=== PATIENT | female | born 1960 | race Caucasian/White ===

== ENCOUNTER → 2020-04-29 | Outpatient (CLI) | payer BC ==
[~2020-04-29] MED LIST: CALCCAP4 PO; CHAN1PAK11 PO; FLUO20CA22 PO; LEVO50TA5 PO; OMEGCAP4 PO; ROSU5TAB5 PO; TENO1TAB2 PO; vitamin d PO
--- NOTE | 2020-04-29 15:16 | REP ---
REASON FOR EXAM: Leg pain. Bilateral. Ankle-brachial index on the right is 1.1. 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 Electronically Signed by Darren Henson DO 04/29/2020 03:44 P
== END ==
LOC: M RAD 11:13
PROVIDERS: ATTEND Physician Assistant
DX: M79.606 Pain in leg, unspecified (principal); I87.2 Venous insufficiency (chronic) (peripheral)

== ENCOUNTER → 2020-05-02 | Outpatient (CLI) | payer BC ==
--- NOTE | 2020-05-02 23:01 | REP ---
BILATERAL LOWER EXTREMITY DUPLEX DOPPLER VENOUS ULTRASOUND WITH EVALUATION FOR VENOUS REFLUX: Real-time compression and duplex Doppler interrogation of bilateral lower extremity deep venous systems is performed. Bilaterally, common femoral, superficial femoral, and popliteal veins are fully compressible with transducer pressure and demonstrate normal spontaneous and phasic flow without evidence of deep venous thrombosis. Evaluation for venous reflux on the right demonstrates no reflux in any of the deep veins. There is no reflux in the anterior accessory greater saphenous vein. There is no reflux in any portion of the greater saphenous vein, which measures 6 mm proximally at the saphenofemoral junction and mid thigh and 5 mm at the level of the knee. There is no reflux in the lesser saphenous vein, which measures 4 mm. On the left, the patient has had greater saphenous vein ablation 2 years ago. There is no reflux in any of the deep veins, nor in the lesser saphenous vein, which measures 3 mm. There is reflux in the anterior accessory greater saphenous vein proximally. The vein is not seen distal to the upper thigh. Electronically Signed by Ravinder Sales MD 05/05/2020 10:36 P
== END ==
LOC: M RAD 11:01
PROVIDERS: ATTEND Physician Assistant
DX: I87.2 Venous insufficiency (chronic) (peripheral) (principal)

== ENCOUNTER → 2020-05-09 | Outpatient (CLI) | payer BC ==
[2020-05-09 10:25] LABS: HEMATOCRIT 43.5 % (36.0-47.0); HEMOGLOBIN 14.9 g/dl (12.0-15.5); MEAN CORPUSCULAR HEMOGLOBIN 37.2 pg (27.0-33.0); MEAN CORPUSCULAR HGB CONC 34.3 g/dl (32.0-36.5); MEAN CORPUSCULAR VOLUME 108.5 fl (80.0-96.0); PLATELET COUNT, AUTOMATED 203 10^3/uL (150-450); RED BLOOD COUNT 4.01 10^6/uL (4.00-5.40); WHITE BLOOD COUNT 7.3 10^3/uL (4.0-10.0)
[2020-05-09 11:06] LABS: ALBUMIN 3.8 GM/DL (3.2-5.2); ALT/SGPT 98 U/L (12-78); BLOOD UREA NITROGEN 7 MG/DL (7-18); CALCIUM LEVEL 9.4 MG/DL (8.5-10.1); CARBON DIOXIDE LEVEL 30 MEQ/L (21-32); CHLORIDE LEVEL 95 MEQ/L (98-107); GLOMERULAR FILTRATION RATE > 60.0 (>51); GLUCOSE, FASTING 104 MG/DL (70-100); POTASSIUM SERUM 3.6 MEQ/L (3.5-5.1); SODIUM LEVEL 132 MEQ/L (136-145); TOTAL PROTEIN 7.9 GM/DL (6.4-8.2)
== END ==
LOC: M LAB 09:48
PROVIDERS: ATTEND Physician Assistant
DX: I87.2 Venous insufficiency (chronic) (peripheral) (principal); M79.606 Pain in leg, unspecified

== ENCOUNTER → 2020-05-14 | Outpatient (CLI) | payer BC ==
[~2020-05-14] MED LIST changes: +ISOVUE-300 61% 50ML VIAL As Ordered ONE; +LIDOCAINE 1% MDV 20ML VIAL As Ordered ONE; +MIDAZOLAM INJ 2MG/2ML VIAL (J2250 PER 1MG) As Ordered ONE; +fentaNYL 100 MCG/2 ML INJECTION (J3010) As Ordered ONE
--- NOTE | 2020-05-14 10:38 | ROOPDOC ---
[facility] Report Of Operation Report of Operation DATE OF PROCEDURE: 05/14/20 PREPROCEDURE DIAGNOSES: Atherosclerosis of the rosebud arteries with worsening wound right ankle and right foot pain POSTPROCEDURE DIAGNOSES: Same PROCEDURE: 1. Ultrasound-guided access left common femoral artery 2. Aortoiliofemoral arteriogram 3. Selection right common femoral artery and superficial femoral artery with right lower extremity runoff SURGEON: Jaime Muir MD ANESTHESIA: Local anesthesia 7 mL lidocaine. Moderate intravenous conscious sedation was supervised by Dr. Muir. The patient was independently monitored by a registered nurse assigned to the Department of radiology using automated blood pressure, EKG, and pulse oximetry. The detailed sedation record is permanently stored in the hospital information system. The following is a brief sedation record: Start time 10:01, stop time 10:24, Versed 1 mg IV, fentanyl 50 g IV. CONTRAST: 19 mL Isovue 300 INDICATION FOR PROCEDURE: This is a very pleasant 60-year-old patient with a long-standing history of tobacco use and venous stasis with lower extremity edema who developed a wound on her right ankle 3 months ago. Initially, the wound was stable but not really healing. We obtained an arterial and venous duplex. The arterial duplex revealed monophasic flow below the knee on the right, and the venous duplex showed there was no deep or superficial reflux present in the right lower extremity. We initially recommended compression and e levation, but the patient said that her wound had started to get much worse over the past week or 2. We then discussed the option for an arteriogram to see if there was any improvement we could offer in arterial outflow to help with wound healing, in addition to recommending ongoing compression and elevation. We also wanted to make sure that the patient had enough arterial flow to tolerate compression and that this was not contributing to her ankle and foot pain. Risks benefits and alternatives to an arteriogram and potential intervention were explained to the patient. She is agreeable to proceed. Informed consent was obtained. INTERPRETATION: 1. The distal aorta, common iliac arteries, hypogastric arteries, and external iliac arteries are all widely patent. No significant plaque or stenosis are noted. 2. The common femoral artery on the right is widely patent with excellent runoff into the profunda which is also widely patent, and the superficial femoral artery. The superficial femoral artery has brisk flow with no signs of stenosis present. 3. There is a widely patent popliteal artery with 3 vessel runoff through the anterior tibial artery, posterior tibial artery and peroneal artery. No signs of significant stenosis are noted in the calf although some plaque is present. However, we notice very little flow through the micro-circulation of the foot. At approximately the mid foot, there is an abrupt decline inflow to the distal foot. I suspect this is due to the patient's smoking. She smoked several cigarettes right before the procedure. We are probably seeing vasoconstriction from her tobacco use. This could be contributing to her for pain. REPORT OF OPERATION: The patient was brought to the angiographic suite in stable condition. Her bilateral groins were prepped and draped in a sterile fashion. A timeout was performed. Sedation was administered without complication. Local anesthesia was administered to the skin and subcutaneous tissue over the left femoral artery and a microneedle was used to access the left common femoral artery under ultrasound guidance. A wire was passed through this access and the needle was removed. A 4 Wallisian sheath was placed and flushed with saline. A Glidewire and flushing catheter were advanced distal aorta. Aortoiliofemoral arteriograms were performed. Please interpretation above. We then went up and over the bifurcation with the catheter and the Glidewire and selected the right common femoral artery. Right lower extremity arteriograms with runoff were performed. These interpretation above. We then exchanged sheath over the wire for a 5 Wallisian sheath and deployed Mynx closure device with good hemostasis. Pre ssure was held for 5 minutes and sterile dressings were applied. The patient was taken to recovery in stable condition. ESTIMATED BLOOD LOSS: Approximately 4 mL. COMPLICATIONS: None. PLAN: It is okay to resume home diet and medications. No lifting greater than 5 pounds or strenuous exercise for 48 hours. We recommend elevation of the bilateral lower extremities above the level of the heart for at least 30 minutes a day to help with venous return and swelling. We recommend daily compression with either 20 or 30 mmHg compression stockings or Unna boots. If she decides to her stockings, she should wear them from morning until night and okay to remove at night. We have given her instructions on appropriate stockings to obtained. The patient is considering an Unna boot, and if she decides she would like this today, we may be able to place and recovery prior to her discharge home. Belle saenz, we will place one when she comes into clinic next week to check her access site. The patient was extensively counseled about smoking cessation as well. Smoking cessation is important for wound healing as well as her long-term arterial circulation. She said she is willing to try Chantix. We will give her prescription for this. We appreciate the opportunity to participate in the care of this patient. JAIME MUIR MD May 14, 2020 10:38
[2020-05-14 13:00] VITALS: BP 123/57
== END ==
LOC: M IRPRO 08:40
PROVIDERS: ATTEND Surgery Vascular Surgery
DX: I70.203 Unspecified atherosclerosis of native arteries of extremities, bilateral legs (principal); L97.319 Non-pressure chronic ulcer of right ankle with unspecified severity; M79.671 Pain in right foot; I87.2 Venous insufficiency (chronic) (peripheral); I10 Essential (primary) hypertension; E53.8 Deficiency of other specified B group vitamins; E55.9 Vitamin D deficiency, unspecified; E78.5 Hyperlipidemia, unspecified; F17.290 Nicotine dependence, other tobacco product, uncomplicated; M85.80 Other specified disorders of bone density and structure, unspecified site; K58.9 Irritable bowel syndrome, unspecified; R60.0 Localized edema; Z88.1 Allergy status to other antibiotic agents; Z79.890 Hormone replacement therapy; Z79.899 Other long term (current) drug therapy
CPT/HCPCS: 36246; 75710; 99152; 99153; C1760; C1769; C1887; C1894; G0269; J1644; J2250; J3010; Q9967

== ENCOUNTER → 2020-07-22 | Outpatient (CLI) | payer BC ==
[~2020-07-22] MED LIST changes: -ISOVUE-300 61% 50ML VIAL As Ordered ONE; -LIDOCAINE 1% MDV 20ML VIAL As Ordered ONE; -MIDAZOLAM INJ 2MG/2ML VIAL (J2250 PER 1MG) As Ordered ONE; -fentaNYL 100 MCG/2 ML INJECTION (J3010) As Ordered ONE
== END ==
LOC: M RAD 10:00
PROVIDERS: ATTEND Surgery
DX: I70.233 Atherosclerosis of native arteries of right leg with ulceration of ankle (principal)

== ENCOUNTER → 2021-02-13 | Outpatient (CLI) | payer BC ==
[~2021-02-13] MED LIST changes: +ATEN100T7 PO; +VITA1CAP25 PO
== END ==
LOC: M LABSMTC 11:19
PROVIDERS: ATTEND Anesthesiology
DX: Z01.818 Encounter for other preprocedural examination (principal); Z20.822 Contact with and (suspected) exposure to COVID-19

== ENCOUNTER → 2021-04-19 | Outpatient (CLI) | payer BC ==
[~2021-04-19] MED LIST changes: +GLYCCAP PO
[2021-04-19 13:05] LABS: INR 1.07; PROTHROMBIN TIME 14.1 SECONDS (12.5-14.3)
[2021-04-19 13:06] LABS: PARTIAL THROMBOPLASTIN TIME 30.1 SECONDS (24.2-38.5)
[2021-04-19 13:10] LABS: BILIRUBIN,DIRECT 0.2 MG/DL (0.0-0.2); BILIRUBIN,TOTAL 0.8 MG/DL (0.2-1.0); PERCENT SATURATION 34.6 % (13.2-45.0); TOTAL PROTEIN 7.9 GM/DL (6.4-8.2)
== END ==
LOC: M LAB 11:37
PROVIDERS: ATTEND Internal Medicine Gastroenterology
DX: E83.110 Hereditary hemochromatosis (principal)

== ENCOUNTER → 2022-04-20 | Outpatient (REF) | payer BC ==
[~2022-04-20] MED LIST changes: +VARE0.5T PO
== END ==
LOC: M SFHCDERM 17:15
PROVIDERS: ATTEND Nurse Practitioner Family
DX: D48.9 Neoplasm of uncertain behavior, unspecified (principal)

== ENCOUNTER 2025-01-15 13:49 | Inpatient (IN) | payer BC ==
[~2025-01-15] VITALS: Ht 177.8 cm; Wt 111.2 kg
[~2025-01-15 13:49] MED LIST changes: +ALPR0.25 PO; +ATEN100T PO; +CYAN1000VL IM; +ELIQ5TAB PO; +FLUO-365 PO; -FLUO20CA22 PO; +FLUO40CA PO; +FOLI1TAB11 PO; +FOLI400T13 PO; +LOSA50TA5; +ROSU5TAB49 PO; -ROSU5TAB5 PO
[2025-01-15 14:19] LABS: BASO % 0.3 % (0.0-1.0); EOS # 0.1 10^3/uL (0.0-0.5); EOS % 0.5 % (0.0-3.0); HEMATOCRIT 34.3 % (36.0-47.0); LYMPH # 0.6 10^3/uL (1.5-5.0); LYMPH % 5.6 % (24.0-44.0); MEAN CORPUSCULAR HGB CONC 32.1 g/dl (32.0-36.5); MEAN CORPUSCULAR VOLUME 105.9 fl (80.0-96.0); MONO # 0.7 10^3/uL (0.0-0.8); MONO % 6.5 % (2.0-8.0); NEUTROPHILS # 9.6 10^3/uL (1.5-8.5); NEUTROPHILS % 86.6 % (36.0-66.0); PLATELET COUNT, AUTOMATED 203 10^3/uL (150-450); RED BLOOD COUNT 3.24 10^6/uL (4.00-5.40); WHITE BLOOD COUNT 11.1 10^3/uL (4.0-10.0)
[2025-01-15] MEDS: methylPREDNISolone 125MG 2ML VIAL IV ONE (14:42)
[2025-01-15] MEDS: LORazepam 2 MG/ML 1ML VIAL IV STA (14:43)
[2025-01-15 14:50] LABS: CK-MB VALUE MASS < 1.0 NG/ML (<3.6)
[2025-01-15] MEDS ORDERED: ISOVUE-370 76% 100ML VIAL As Ordered ONE (14:51)
[2025-01-15 14:52] LABS: BLOOD UREA NITROGEN 15 MG/DL (9-23); CALCIUM LEVEL 9.2 MG/DL (8.3-10.6); CARBON DIOXIDE LEVEL 23 MMOL/L (20-31); CHLORIDE LEVEL 103 MMOL/L (98-107); CREATININE FOR GFR 0.68 MG/DL (0.55-1.30); GLOMERULAR FILTRATION RATE > 60.0 (>45); GLUCOSE, FASTING 115 MG/DL (74-106); POTASSIUM SERUM 4.5 MMOL/L (3.5-5.1); SODIUM LEVEL 138 MMOL/L (136-145)
[2025-01-15] MEDS: IPRATROPIUM 0.5MG/ALBUTEROL 2.5MG INH SOL UD 3ML (DUONEB) NEB ONE (14:52)
[2025-01-15 14:55] LABS: CPK CREATINE PHOSPHOKINASE 32 U/L (34-145); MB/CK RELATIVE INDEX 3.12 (< OR =4)
[2025-01-15 15:05] LABS: ALBUMIN 3.6 G/DL (3.2-5.2); BILIRUBIN,DIRECT 0.4 MG/DL (<0.4); TOTAL PROTEIN 7.9 G/DL (5.7-8.2)
[2025-01-15] MEDS: FUROSEMIDE 40MG/4ML VIAL IV ONE (15:06)
[2025-01-15 15:08] LABS: THYROID STIMULATING HORMONE 3.74 uIU/ML (0.55-4.78)
[2025-01-15 15:09] LABS: FREE T4 0.8 NG/DL (0.89-1.76)
[2025-01-15 15:09] LABS: ABG BASE EXCESS -2.8 (-2.0-2.0); ABG HCO3 20.4 MMOL/L (22.0-26.0); ABG PARTIAL PRESSURE CO2 30.3 mmHg (35.0-45.0); ABG PARTIAL PRESSURE O2 67.7 mmHg (75.0-100.0); ABG STANDARD HCO3 22.1 MMOL/L. (22.0-26.0); ABG TOTAL CO2 21.3 MMOL/L (23.0-31.0); ABG pH (ARTERIAL) 7.445 UNITS (7.350-7.450)
[2025-01-15 16:06] LABS: CPK CREATINE PHOSPHOKINASE 28 U/L (34-145)
[2025-01-15 16:10] LABS: CK-MB VALUE MASS < 1.0 NG/ML (<3.6); MB/CK RELATIVE INDEX 3.57 (< OR =4)
[2025-01-15] MEDS: ACETAMINOPHEN *IV* 1,000 MG in IV 1 EA IV ONE (16:47)
[2025-01-15] MEDS: NITROGLYCERIN 2% OINT 1 GM *U/D* PKT TOP ONE (16:47)
[2025-01-15] MEDS: cefTRIAXone SOD 2 GM in DEXTROSE 5% (D5W) ADV/MINI-BAG 50 ML IV ONE (17:31)
[2025-01-15] MEDS ORDERED: LOSARTAN 50MG TABLET PO ONE (17:45)
[2025-01-15] MEDS ORDERED: ALPRAZolam 0.25 MG TAB PO PRN (17:50)
[2025-01-15] MEDS ORDERED: LOSA100T46 PO (17:57)
[2025-01-15] MEDS ORDERED: MIRA25TA2 PO (17:57)
[2025-01-15] MEDS ORDERED: LEVO100T5 PO (17:57)
[2025-01-15] MEDS ORDERED: SANT250O8 TOP (17:57)
[2025-01-15] MEDS ORDERED: HOME MED LIST COMPLETE! XX SCH (18:00)
[2025-01-15 18:27] LABS: PROCALCITONIN 0.24 ng/ml
[2025-01-15] MEDS: DOXYCYCLINE HYCLATE 100 MG in DEXTROSE 5% (D5W) MINI-BAG PLU 100 ML IV ONE (18:29)
[2025-01-15] MEDS ORDERED: PILL CUTTER 1 EACH XX PRN (18:30)
[2025-01-15] MEDS: CARVedilol 12.5 MG TAB PO SCH (18:34)
[2025-01-15] MEDS: LevoFLOXacin 750 MG TABLET PO SCH (18:51)
[2025-01-15 20:45] VITALS: O2SAT 97
[2025-01-15 20:57] VITALS: BP 135/64; TEMP 98.5; O2SAT 99
[2025-01-15 21:00] VITALS: O2SAT 98
[2025-01-15] MEDS: APIXABAN 5 MG TAB (ELIQUIS) PO SCH (21:11)
[2025-01-15] MEDS: THIAMINE 100 MG TAB PO SCH (21:11)
[2025-01-15 21:15] VITALS: O2SAT 95
[2025-01-16] VITALS (7 sets, daily range): BP systolic 125–142; BP diastolic 56–85; TEMP 97.1–98.4; O2SAT 94–97
[2025-01-16] MEDS: NS (Normal Saline) 0.9% 1,000 ML IV SCH (01:00)
[2025-01-16] MEDS ORDERED: DOBUTamine 500 MG/250 ML BAG IN D5W (2,000 MCG/ML) As Ordered ONE (03:22)
[2025-01-16 04:32] LABS: HEMATOCRIT 29.9 % (36.0-47.0); MEAN CORPUSCULAR HEMOGLOBIN 34.2 pg (27.0-33.0); MEAN CORPUSCULAR HGB CONC 33.4 g/dl (32.0-36.5); MEAN CORPUSCULAR VOLUME 102.4 fl (80.0-96.0); PLATELET COUNT, AUTOMATED 172 10^3/uL (150-450); RED BLOOD COUNT 2.92 10^6/uL (4.00-5.40)
[2025-01-16 04:46] LABS: BLOOD UREA NITROGEN 16 MG/DL (9-23); CALCIUM LEVEL 8.6 MG/DL (8.3-10.6); CARBON DIOXIDE LEVEL 26 MMOL/L (20-31); CHLORIDE LEVEL 103 MMOL/L (98-107); CREATININE FOR GFR 0.75 MG/DL (0.55-1.30); GLOMERULAR FILTRATION RATE > 60.0 (>45); GLUCOSE, FASTING 144 MG/DL (74-106); POTASSIUM SERUM 4.4 MMOL/L (3.5-5.1); SODIUM LEVEL 137 MMOL/L (136-145)
[2025-01-16] MEDS: LEVOTHYROXINE 100MCG TABLET (0.1MG) PO SCH (05:57)
[2025-01-16] MEDS: diphenhydrAMINE 50MG/ML VIAL IV ONE (08:33)
[2025-01-16] MEDS: KETOROLAC 30 MG/ML 1ML VIAL IV ONE (08:33)
[2025-01-16] MEDS: FLUoxetine 20MG CAP PO SCH (08:34)
[2025-01-16] MEDS: DOXYCYCLINE HYCLATE 100MG TABLET PO SCH (08:34)
[2025-01-16] MEDS: LOSARTAN 50MG TABLET PO SCH (08:35)
[2025-01-16] MEDS: FOLIC ACID 1MG TAB PO SCH (08:35)
[2025-01-16] MEDS: MULTIVITAMINS/MINERALS THERAP 1 TAB PO SCH (08:35)
[2025-01-16] MEDS: ROSUVASTATIN 10 MG TAB (CRESTOR) PO SCH (08:36)
[2025-01-16] MEDS: ACETAMINOPHEN 325 MG TAB PO PRN (16:39)
[2025-01-16] MEDS: cefTRIAXone SOD 2 GM in DEXTROSE 5% (D5W) ADV/MINI-BAG 50 ML IV SCH (17:49)
[2025-01-17] VITALS (24 sets, daily range): BP systolic 93–225; BP diastolic 51–112; TEMP 96.6–102.1; O2SAT 86–97
[2025-01-17] MEDS: ALPRAZolam 0.25 MG TAB PO PRN (02:18)
[2025-01-17] MEDS: LORazepam 2 MG TAB PO PRN (05:24)
[2025-01-17 06:25] LABS: BASO % 0.1 % (0.0-1.0); EOS % 0.3 % (0.0-3.0); HEMATOCRIT 33.4 % (36.0-47.0); HEMOGLOBIN 10.8 g/dl (12.0-15.5); LYMPH # 0.6 10^3/uL (1.5-5.0); MEAN CORPUSCULAR HEMOGLOBIN 33.2 pg (27.0-33.0); MEAN CORPUSCULAR HGB CONC 32.3 g/dl (32.0-36.5); MEAN CORPUSCULAR VOLUME 102.8 fl (80.0-96.0); MONO # 0.6 10^3/uL (0.0-0.8); MONO % 6.1 % (2.0-8.0); NEUTROPHILS # 8.1 10^3/uL (1.5-8.5); NEUTROPHILS % 86.6 % (36.0-66.0); PLATELET COUNT, AUTOMATED 206 10^3/uL (150-450); RED BLOOD COUNT 3.25 10^6/uL (4.00-5.40); WHITE BLOOD COUNT 9.3 10^3/uL (4.0-10.0)
[2025-01-17 06:48] LABS: BLOOD UREA NITROGEN 26 MG/DL (9-23); CARBON DIOXIDE LEVEL 22 MMOL/L (20-31); CHLORIDE LEVEL 101 MMOL/L (98-107); CREATININE FOR GFR 0.74 MG/DL (0.55-1.30); GLOMERULAR FILTRATION RATE > 60.0 (>45); GLUCOSE, FASTING 126 MG/DL (74-106); SODIUM LEVEL 136 MMOL/L (136-145)
[2025-01-17] MEDS: ACETAMINOPHEN *IV* 1,000 MG in IV 1 EA IV ONE (08:17)
[2025-01-17] MEDS: hydrALAZINE 20MG/ML 1ML VIAL IV PRN (08:17)
[2025-01-17] MEDS: CARVedilol 12.5 MG TAB PO SCH (08:22)
[2025-01-17 09:31] LABS: C REACTIVE PROTEIN QUANTITATIV 5.54 MG/DL (<1.0)
[2025-01-17 09:43] LABS: PROCALCITONIN 0.74 ng/ml
[2025-01-18 04:13] VITALS: BP 154/85; TEMP 97.2; O2SAT 96
[2025-01-18 04:54] LABS: BASO % 0.2 % (0.0-1.0); EOS # 0.1 10^3/uL (0.0-0.5); EOS % 1.9 % (0.0-3.0); HEMATOCRIT 31.1 % (36.0-47.0); HEMOGLOBIN 9.9 g/dl (12.0-15.5); LYMPH # 1.1 10^3/uL (1.5-5.0); MEAN CORPUSCULAR HEMOGLOBIN 33.2 pg (27.0-33.0); MEAN CORPUSCULAR HGB CONC 31.8 g/dl (32.0-36.5); MEAN CORPUSCULAR VOLUME 104.4 fl (80.0-96.0); MONO # 0.5 10^3/uL (0.0-0.8); MONO % 9.1 % (2.0-8.0); NEUTROPHILS # 3.5 10^3/uL (1.5-8.5); NEUTROPHILS % 66.9 % (36.0-66.0); PLATELET COUNT, AUTOMATED 168 10^3/uL (150-450); RED BLOOD COUNT 2.98 10^6/uL (4.00-5.40); WHITE BLOOD COUNT 5.3 10^3/uL (4.0-10.0)
[2025-01-18 05:17] LABS: BLOOD UREA NITROGEN 20 MG/DL (9-23); CALCIUM LEVEL 8.4 MG/DL (8.3-10.6); CARBON DIOXIDE LEVEL 26 MMOL/L (20-31); CHLORIDE LEVEL 103 MMOL/L (98-107); CREATININE FOR GFR 0.66 MG/DL (0.55-1.30); GLOMERULAR FILTRATION RATE > 60.0 (>45); GLUCOSE, FASTING 103 MG/DL (74-106); POTASSIUM SERUM 3.6 MMOL/L (3.5-5.1); SODIUM LEVEL 137 MMOL/L (136-145)
[2025-01-18 07:35] VITALS: BP 157/81; TEMP 97.3; O2SAT 93
[2025-01-18] MEDS ORDERED: LEVO1TAB40 PO (09:53)
[2025-01-18] MEDS ORDERED: CARV25TA PO (09:53)
[2025-01-18] MEDS ORDERED: ALBU8.5H INH (09:55)
== END 2025-01-18 12:04 | disposition home or self-care (01) | DRG 720 ==
LOC: EDBD 13:49 → M ED 13:49 → M ED INP 17:43 → M ICU 20:47
PROVIDERS: ADMIT Internal Medicine; ATTEND Internal Medicine
DX: A40.0 Sepsis due to streptococcus, group A (principal); J96.01 Acute respiratory failure with hypoxia; E87.20 Acidosis, unspecified; I50.32 Chronic diastolic (congestive) heart failure; I48.11 Longstanding persistent atrial fibrillation; L97.919 Non-pressure chronic ulcer of unspecified part of right lower leg with unspecified severity; F10.20 Alcohol dependence, uncomplicated; F41.9 Anxiety disorder, unspecified; F32.A Depression, unspecified; Z79.01 Long term (current) use of anticoagulants; E03.9 Hypothyroidism, unspecified; E83.110 Hereditary hemochromatosis; E78.5 Hyperlipidemia, unspecified; I87.2 Venous insufficiency (chronic) (peripheral); Z79.899 Other long term (current) drug therapy; Z88.8 Allergy status to other drugs, medicaments and biological substances; E53.8 Deficiency of other specified B group vitamins; I16.0 Hypertensive urgency

== ENCOUNTER → 2025-01-31 | Outpatient (CLI) | payer BC ==
[~2025-01-31] MED LIST changes: +ALBU8.5H INH; +CARV25TA PO; +LEVO100T5 PO; +LEVO1TAB40 PO; +LOSA100T46 PO; +MIRA25TA2 PO; +SANT250O8 TOP
== END ==
LOC: M RAD 09:20
PROVIDERS: ATTEND Physician Assistant
DX: I87.311 Chronic venous hypertension (idiopathic) with ulcer of right lower extremity (principal); L97.912 Non-pressure chronic ulcer of unspecified part of right lower leg with fat layer exposed; L97.512 Non-pressure chronic ulcer of other part of right foot with fat layer exposed

== ENCOUNTER → 2025-03-07 | Outpatient (POV) | payer BC | LOC: M IRPOV 10:32 | PROVIDERS: ATTEND Radiology Diagnostic Radiology | DX: I87.2 Venous insufficiency (chronic) (peripheral) (principal); L97.919 Non-pressure chronic ulcer of unspecified part of right lower leg with unspecified severity; Z79.01 Long term (current) use of anticoagulants; Z79.899 Other long term (current) drug therapy; Z88.1 Allergy status to other antibiotic agents; Z88.8 Allergy status to other drugs, medicaments and biological substances ==

== ENCOUNTER → 2025-08-08 | Outpatient (REF) | payer BC ==
[2025-08-08 20:21] LABS: IRON (FE) 146.0 UG/DL (50-170); PERCENT SATURATION 41.8 % (13.2-45.0)
== END ==
LOC: M LAB REF 17:28
PROVIDERS: ATTEND Internal Medicine Nephrology
DX: E83.118 Other hemochromatosis (principal)